=== PATIENT | male | born 1970 | race Caucasian/White ===

== ENCOUNTER 2023-01-31 14:01 | Emergency (ER) | payer OTHER, SELFPAY ==
[2023-01-31 14:14] VITALS: BP 127/75; PULSE 75; RESP 18; TEMP 36.8; O2SAT 98
--- NOTE | 2023-01-31 14:30 | DI.RAD_ITS ---
Exam(s) XR SHOULDER LT COMPLETE 2+V XR CLAVICLE LT EXAM: XR CLAVICLE LT and XR shoulder LT complete 2 V CLINICAL HISTORY: trauma TECHNIQUE: 2D digital imaging was performed of the left shoulder and clavicle. Seven images were ob tained. AP, axial, axillary, Y and Grashey views were obtained. COMPARISON: CR XR SHOULDER LT COMPLETE 2+V from 01/31/2023 FINDINGS: BONES: No acute fracture is present. No bony destructive lesion is seen. JOINTS: There is a left AC joint separation. Degenerative changes are seen at the acromioclavicular joint. The glenohumeral joint is intact. SOFT TISSUE: Normal. IMPRESSION: Grade 3 left AC joint separation. DATA REPOSITORY: RADIATION DOSE DELIVERED:
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
[2023-01-31 15:53] VITALS: BP 122/80; PULSE 75; RESP 20; TEMP 36.8; O2SAT 98
== END 2023-01-31 15:54 | disposition home or self-care (01) ==
PROVIDERS: Emergency Provider Nurse Practitioner Family
DX: S43.102A Unspecified dislocation of left acromioclavicular joint, initial encounter (principal); V28.49XA Other motorcycle driver injured in noncollision transport accident in traffic accident, initial encounter
CPT/HCPCS: 99284; 73000; 73030; 99283